=== PATIENT | female | born 1960 | race American Indian/Alaskan Native ===

== ENCOUNTER 2017-05-19 21:10 | Emergency (ER) | payer BC, OTHER ==
[~2017-05-19] VITALS: Ht 162.6 cm; Wt 65.8 kg
[~2017-05-19 21:10] MED LIST: CALCIUM 600 +1 EACH; DOCUSATE SODIU100 MG PO; NORCO 5-325 TA1 EACH PO; PROTONIX40 MG PO
[2017-05-19] MEDS ORDERED: PROTONIX40 MG PO (22:47)
--- NOTE | 2017-05-21 17:15 | EKG ---
[facility] [address] [facility] [place], [place] [address] Signed Normal sinus rhythm Low voltage QRS Borderline ECG No previous ECGs available Confirmed by JOANNE WHITE MD ([id number]) on 05/21/2017 5:15:04 PM Electronically Signed By: JOANNE WHITE MD 05/21/17 1715 PATIENT NAME: TEX ESPINOZA Electrocardiogram DATE OF : 60 PHYSICIAN: JOANNE WHITE MD REPORT #: [id number] REPORT IS CONFIDENTIAL AND NOT TO BE RELEASED WITHOUT AUTHORIZATION
[2017-08-20] MEDS ORDERED: NEXIUM40 MG PO (08:53)
[2017-08-20] MEDS ORDERED: FLOVENT DISKUS50 MCG INH (08:54)
[2017-08-20] MEDS ORDERED: ANTACID200 MG PO (08:54)
[2017-08-20] MEDS ORDERED: DOCUSATE CALCI240 MG PO (08:55)
== END 2017-05-19 23:14 | disposition home or self-care (01) ==
LOC: ED 21:10
DX: K29.70 Gastritis, unspecified, without bleeding (principal); F17.200 Nicotine dependence, unspecified, uncomplicated; Z90.710 Acquired absence of both cervix and uterus; Z90.49 Acquired absence of other specified parts of digestive tract; Z88.6 Allergy status to analgesic agent
CPT/HCPCS: 80053; 81001; 83690; 85025; 93005; 93010; 96374; 96375; 99284; J1170; J2405; J7030

== ENCOUNTER 2017-05-21 20:53 | Inpatient (IN) | payer BC, OTHER ==
[~2017-05-21] VITALS: Ht 162.6 cm; Wt 64.0 kg
[2017-05-22] MEDS ORDERED: VICODIN 5-3001 EACH PO (00:57)
--- NOTE | 2017-05-22 02:10 | NUR ---
IN TO START IV ABX, PT RESTING. STATES HER PAIN IS BETTER. PT NPO. NO FURTHER NEEDS AT THIS TIME. CALL LIGHT WITH IN REACH.
--- NOTE | 2017-05-22 03:30 | NUR ---
IN TO CHECK ON PT, PT APPEARS TO BE SLEEPING. NO APPARENT DISTRESS NOTED. RR EVEN AND UNLABORED. CALL LIGHT WITH IN REACH.
--- NOTE | 2017-05-22 05:52 | NUR ---
PT ARRIVED FROM ED AT 0046. AAO X 3, PLEASENT, CALLS APPROPRIATLY. PRN PAIN MEDICATION GIVEN X1 FOR ABDOMINAL PAIN. IV ABX ADMINISTERED. PT IS NPO. UP TO BATHROOM WITH STANDBY ASSIST. NO NAUSEA OR VOMITING DURING SHIFT.
--- NOTE | 2017-05-22 07:00 | NUR ---
BEDSIDE HANDOFF REPORT RECIEVED FROM HEEL GOUGER RN. PT RESTING IN BED. PT DENIES NEEDS AT THIS TIME.
--- NOTE | 2017-05-22 08:40 | NUR ---
PT RESTING IN BED. PT REQUESTING PAIN MEDICATION, 0.5 MG DILAUDID GIVEN. PT ASSISTED TO RESTROOM, VOIDING WITHOUT DIFFICULT. PT DENIES NAUSEA, NPO, MOUTH SWABS AT BEDSIDE. PT BOWEL TONES ACTIVE. LUNG SOUNDS CLEAR, ON ROOM AIR. IV FLUIDS INFUSING NS AT 125 ML/HR. PT DENIES OTHER NEEDS AT THIS TIME. AWAITING DR. BECK.
--- NOTE | 2017-05-22 12:10 | NUR ---
PT RESTING IN BED. MD TO BEDSIDE TO EVAULATE PT, DISCUSSED PLAN AND COURSE OF TREATMENT, PLAN TO CONTINUE WITH ABX, REMAIN NPO AND MONITOR FOR IMPROVING DIVERTICULITIS. PT BOWEL TONES HYPOACTIVE. PT ON ROOM AIR. PT VOIDING QS. PT DENIES OTHER NEEDS AT THIS TIME.
--- NOTE | 2017-05-22 14:30 | CONS ---
[facility] [address] [place], [place] [address] Signed DATE OF CONSULTATION: 05/22/17 REFERRING PHYSICIANS: Dr. Brianda [place]. CHIEF COMPLAINT: Left lower quadrant abdominal pain. HISTORY OF PRESENT ILLNESS Mariana is a 56-year-old female who had 3 days of abdominal pain. She thought maybe it was more epigastric. In the past, she was diagnosed with Helicobacter associated gastritis. Consequently, her primary care provider put her on Prilosec. It was making no difference and so she decided to come to the emergency room for evaluation. I n the emergency room, she is tender in the left lower quadrant with an elevated white blood cell count. CT scan confirmed diverticulitis in the descending colon. There is either a large diverticulum or little pocket of air in the mesentery next to the col on. 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 In the meantime, she has done fine. PAST MEDICAL HISTORY: Helicobacter associated gastritis. PAST SURGICAL HISTORY Laparoscopic cholecystectomy, hysterectomy and bladder suspension with mesh, right retinal detachment. SOCIAL HISTORY She does like to smoke. She does not drink. She is to Bill at [phone]. She goes to [facility] with Dr. John Horton. FAMILY HISTORY: None. REVIEW OF SYSTEMS She had 10 systems reviewed, and she has been doing great since I have seen her in my office previously. ALLERGIES: Ibuprofen. MEDICATION: Protonix. PHYSICAL EXAMINATION VITAL SIGNS: Blood pressure 99/49, heart rate 81, respiratory rate 20, temperature is 99. Her O2 sat is 95%. She is 5 feet 4 inches, 64 kg. GENERAL: Mariana is a 56-year-old female, appears healthy and her stated age. She is not systemically ill or toxic. She is lying supine in her hospital bed. LUNGS: Clear to auscultation bilaterally. HEART: Regular rate and rhythm. Electronically Signed By: LAYLA BECK MD 05/22/17 1430 PATIENT NAME: MARIANA HORTON CONSULTATION DATE OF : 60 PHYSICIAN: LAYLA BECK MD REPORT #: [id number] REPORT IS CONFIDENTIAL AND NOT TO BE RELEASED WITHOUT AUTHORIZATION [facility] [address] [place] [id number] Signed ABDOMEN: Soft and flat, but she is tender in the right mid quadrant to right lower quadrant of her abdomen. RECTUM: Rectal exam not performed currently. LABORATORY DATA White blood cell count 17.2, hemoglobin 12, neutrophils 81, platelets 170. BUN 9, creatinine 0.7, albumin 3.5, liver function tests are negative. RADIOGRAPHIC STUDIES CT scan of the abdomen and pelvis is reviewed as well as the report. You can see the area of diverticulitis in the mid descending colon and what may be a pocket of air in the mesentery or large diverticulum. ASSESSMENT AND PLAN Mariana is a 56-year-old female who presents with diverticulitis as above. It appears to be in the mid descending colon. She has been given IV fluids and antibiotics. I think we will change out the Rocephin for Cefepime and keep the Flagyl. We will keep her n.p.o. with some IV fluids and give her some pain control and see if this does not settle down he re in a few days. I reviewed all this with Mariana in detail. She understands diverticular disease. She understand she may or may not need surgery depending on her response to the antibiotics. She has expressed understanding and agrees to the above plan. MD HUSSEIN Walker/Yonis /[id number] cc: Dr. John Horton Electronically Signed By: LAYLA BECK MD 05/22/17 1430 PATIENT NAME: OLGAMARIANA VIDAL CONSULTATION DATE OF : 60 PHYSICIAN: LAYLA BECK MD REPORT #: [id number] REPORT IS CONFIDENTIAL AND NOT TO BE RELEASED WITHOUT AUTHORIZATION
[2017-05-22] MEDS ORDERED: MAALOX ADVANCE355 ML PO (15:26)
--- NOTE | 2017-05-22 15:27 | NUR ---
MED REC COMPLETE WITH [facility] MEDICATION REFILL RECORDS.
--- NOTE | 2017-05-22 18:19 | NUR ---
PT ALERT/ORIENTED. PT ON ROOM AIR. PT DENIES NAUSEA. ABD PAIN WELL CONTROLLED WITH 0.5 MG IV DILAUDID, PT CALLS APPROPRIATELY FOR PAIN MEDICATION. IV FLUIDS INFUSING D5LR AT 125 ML/HR. PT UP WITH SBA TO BATHROOM, HAS NOT HAD BM, VOIDING QS. PT NPO, HAS HARD CANDY AT BEDSIDE. PLAN IS TO CONTINUE IV ABX.
--- NOTE | 2017-05-22 18:39 | EKG ---
[facility] [address] [facility] [place] [address] Signed Normal sinus rhythm Right bundle branch block Abnormal ECG When compared with ECG of 19-MAY-2017 21:28, Right bundle branch block is now present Confirmed by JOANNE WHITE MD ([id number]) on 05/22/2017 6:38:49 PM Electronically Signed By: JOANNE WHITE MD 05/22/17 1839 PATIENT NAME: TEX ESPINOZA Electrocardiogram DATE OF : 60 PHYSICIAN: JOANNE WHITE MD REPORT #: [id number] REPORT IS CONFIDENTIAL AND NOT TO BE RELEASED WITHOUT AUTHORIZATION
--- NOTE | 2017-05-22 20:00 | NUR ---
RECEIVED REPORT AT 1900. FOUND PT IN BED WATCHING TV. PT DENIED PAIN AND N/V AT THAT TIME.
--- NOTE | 2017-05-22 22:00 | NUR ---
SBP WAS 95 AT 2100. MD BECK WAS CALLED AND NOTYFIED. NO INSTRUCTIONS WERE GIVEN SINCE PT HAS A LOWER SBP USUALLY AND SHE IS ASYMPTOMATIC. ALL OTHER V/S ARE WDL. ULQ, LLQ AND LRQ HAVE NORMAL ACITVE BOWEL SOUNDS. URQ HAS HYPOACTIVE BOWEL TONES. ALL LOBES ARE CLEAR. PT STILL DENIES N/V AND PAIN THAT WARRANTS ANY MEDICATION. NO NEW ISSUES NOTED AT THIS TIME.
--- NOTE | 2017-05-23 01:00 | NUR ---
PT IS SLEEPING AT THIS TIME.
--- NOTE | 2017-05-23 04:00 | NUR ---
PT IS SLEEPING. EARLIER PT STATED THAT HER PAIN IS MUCH BETTER.
--- NOTE | 2017-05-23 05:15 | NUR ---
PT OVERALL HAD AN UNEVENTFUL NIGHT. PAIN HAS BEEN WELL CONTROLLED WITH PRN PAIN MEDS AVAILABLE. PT DENIES N/V. SBP HAS BEEN >100. MD BECK WAS CALLED. PT IS ASYMPTOMATIC. OTHERWISE V/S ARE WDL. ALL BOWEL SOUNDS ARE HYPOACTIVE. PT IS PASSING GAS.
--- NOTE | 2017-05-23 06:31 | NUR ---
PT HAD A SBP INITIALLY OF 86. I ASSISTED PT TO BATHROOM. PT WAS NOT DIZZY OR IN ANY OTHER WAY SYMPTOMATIC IN REGARDS TO A LOW BP. AFTER RETURNING TO BED HER SPB WAS 89. I WILL PASS THIS INFOR ON TO DAY SHIFT IF MD BECK IS NOT HERE BEFORE 0700.
--- NOTE | 2017-05-23 07:15 | NUR ---
HANDOFF REPORT RECEIVED FROM MIND READER RN.
--- NOTE | 2017-05-23 08:00 | NUR ---
PT RESTING IN BED. PT STATES PAIN TOLERABLE AT THIS TIME, DENIES NEED FOR PAIN MEDICATION. PT ON ROOM AIR, LUNG SOUNDS CLEAR. PT DENIES NAUSEA, COMPLAINT OF ABD CRAMPING, BOWEL TONES HYPOACTIVE. IV ABX INFUSING. PT WIHTOUT EDEMA. PT DENIES NEEDS AT THIS TIME. DISCUSSED SHOWER LATER.
--- NOTE | 2017-05-23 11:03 | NUR ---
PT IS SITTING UP IN BED WITH CALL LIGHT IN REACH. PT ASKED FOR A WARM BLANKETS AND HARD CANDY
--- NOTE | 2017-05-23 13:50 | NUR ---
PT RESTING IN BED. FAMILY AT BEDSIDE. IV ABX INFUSING. PT DENIES NAUSEA. PT REQUESTING CHICKEN BROTH, PROVIDED 150 ML AND INSTRUCTED TO SIP SLOWLY. PT WALKING IN [place] WITH FAMILY. PT DENIES OTHER NEEDS AT THIS TIME.
--- NOTE | 2017-05-23 14:13 | NUR ---
PT AMBULATED IN THE HALLWAY, AND IS NOW SITTING UP ON THE SIDE OF THE BED WITH CALL LIGHT IN REACH. PT ASKED FOR A ROBE
--- NOTE | 2017-05-23 17:56 | NUR ---
PT USED BATHROOM AND RETURNED TO BED. PT DID NOT NEED ANYTHING ELSE
--- NOTE | 2017-05-23 18:33 | NUR ---
PT WELL CONTROLLED, REQUIRED 1 DOSE OF DILAUDID THIS AFTERNOON. RECEIVING IV ABX TO LEFT FA. PT AMBULATED IN [place]. ATTEMPTED TO DRINK BROTH, DID NOT TOLERATE, WATER AT BEDSIDE, <350ML/8HR. BOWEL TONES HYPOACTIVE, PASSED FLATUS. VOIDING QS.
--- NOTE | 2017-05-23 20:05 | NUR ---
SHIFT REPORT RECIEVED. PATIENT RESTING IN BED. REPORTS A HEADACHE AT 6/10. REQUEST PRN SUPPOSITORY PAIN MEDS. PRN PAIN MED WAS GIVEN. PATIENT HAS NO FURTHER REQUEST AT THIS TIME. CALL LIGHT WITHIN REACH.
--- NOTE | 2017-05-23 20:46 | NUR ---
EVENING MEDICATIONS GIVEN PER ORDER. PATIENT REPORTS HEADACHE HAS IMPROVED TO A 3/10. PATIENT BOWEL SOUNDS ARE HYPOACTIVE. ABDOMEN SOFT AND TENDER THROUGHOUT, MORE SO ON THE RUQ. PATIENT DENIES NAUSEA AT THIS TIME. HAS BEEN SIPPING WATER AND REPORTS THAT SHE IS TOLERATING IT WELL. PATIENT AGREES TO TAKE A SMALL WALK IN THE [facility]. PATIENT HAS SCD'S ON BOTH LEGS. LUNGS ARE CLEAR THROUGHOUT. PATIENT HAS NO FURTHER REQUEST AT THIS TIME. RN WILL RETURN TO ASSIST PATIENT WITH AMBULATION WHEN PATIENT IS READY. CALL LIGHT WITHIN REACH. ASSESSMENT COMPLETED AND DOCUMENTED.
--- NOTE | 2017-05-23 21:30 | NUR ---
PATIENT UP TO WALK IN THE HALLWAY. PATIENT WAS STEADY ON HER FEET WITH A STAND BY ASSIST. PATIENT TOLERATED AMBULATION WELL. STATED THAT IT "FELT GOOD TO GET UP AND MOVE". PATIENT WAS ASSISTED BACK INTO BED. NO FURTHER REQUEST AT THIS TIME. CALL LIGHT WITHIN REACH.
--- NOTE | 2017-05-24 00:35 | NUR ---
PATIENT UP TO BATHROOM. PATIENT REQUESTED TO TRY SOME JELLO. SHE HAD TRIED BROTH EARLIER TODAY AND IT DID NOT SETTLE WELL WITH HER. SHE HAS BEEN TOLERATING WATER WELL. PATIENT GIVEN JELLO AND RN WILL REASSESS. PATIENT DENIES NAUSEA. STATES THAT HER ABDOMINAL PAIN HAS BEEN "ACTING UP, COMING AND GOING". PATIENT REQUEST PRN PAIN MEDICATIONS WHICH WAS GIVEN TO HER. SHE DESCRIBED HER PAIN "A TIGHTNESS, KIND OF LIKE A CRAMP". RATED AT 5/10.
--- NOTE | 2017-05-24 00:59 | NUR ---
PATIENT REPORTED HER LEFT HAND FEELS SLIGHTLY SWOLLEN. IV IS IN RIGHT AC. IV IS WNL. NO REDNESS OR SWELLING AROUND THE SIGHT ARE NOTICED. RIGHT ARM WAS ELEVATED ON A PILLOW. IVF ARE RUNNING CONTINUOUSLY AT 125ML/HR. PATIENT INSTRUCTED TO ALERT RN IF THE IV BECOMES PAINFUL, THE SWELLING INCREASES, OR SHE NOTICES ANY OTHER CHANGES. PATIENT GIVEN PRN PAIN MEDICATION FOR ABDOMINAL PAIN, REPORTS THE PAIN IS NOW UNDERCONTROL AT A 2/10. NO FURTHER REQUEST AT THIS TIME. CALL LIGHT WITHIN REACH.
--- NOTE | 2017-05-24 01:41 | NUR ---
PATIENT HAD 100ML OF GREEN EMESIS. PATIENT REQUEST PRN NAUSEA MEDS WHICH WERE GIVEN. ORAL CARE PROVIDED AND PATIENT REPORTED THAT THE NAUSEA HAD LESSENED AFTER SHE HAD ONE EPISODE OF EMESIS. WILL REASSESS. CALL LIGHT IN REACH. NO FURTHER REQUEST AT THIS TIME.
--- NOTE | 2017-05-24 02:41 | NUR ---
PATIENT RESTING IN BED. EYES CLOSED. RR 14. CALL LIGHT IN REACH.
--- NOTE | 2017-05-24 05:28 | NUR ---
PATIENT UP TO BATHROOM SBA. DENIES PAIN OR NAUSEA AT THIS TIME. NO FURTHER REQUEST AT THIS TIME. CALL LIGHT WITHIN REACH.
--- NOTE | 2017-05-24 05:47 | NUR ---
PATIENT RESTED THROUGHOUT THE NIGHT. PRN MEDS X2 FOR CAPPS AND ABD PAIN. BOWEL SOUNDS ARE HYPOACTIVE. ABD SOFT&TENDER. 350ML/8HR CLEAR LIQUID DIET. TOLERATES WATER WELL, NAUSEOUS W/BROTH &JELLLO. EMESIS X1, PRN MEDS GIVEN. PATIENT DENIES PAIN OR NAUSEA THIS MORNING. [facility]. IV IN RAC. SCDS. D5LR @125ML/HR.
--- NOTE | 2017-05-24 06:40 | NUR ---
PATIENT RESTING IN BED. EYES CLOSED. RR 16. CALL IN REACH.
--- NOTE | 2017-05-24 07:00 | NUR ---
BEDSIDE HANDOFF REPORT RECEIVED FROM ACCOUNTS PAYABLES CLERK RN. PT SLEEEPING, LEFT UNDISTURBED.
--- NOTE | 2017-05-24 08:30 | NUR ---
PT RESTING IN BED. PT DENIES NAUSEA AT THIS TIME, RATING PAIN 4/10, DENIES NEED FOR PAIN MEDICATION AT THIS TIME. PT ON ROOM AIR, LUNG SOUNDS CLEAR. BOWEL TONES HYPOACTIVE. SWELLING IN LEFT LOWER ARM IMPROVED, ARM ELEVATED ON PILLOW, IV TO L AC PATENT, NO S/S OF LEAKING OR INFILTRATION. IV ABX INFUSING. PT WITHOUT EDEMA TO BLE, SCDS IN PLACE. PT DENIES NEEDS AT THIS TIME, DISCUSSEC PLAN OF CARE.
--- NOTE | 2017-05-24 12:13 | NUR ---
PT REQUESTIGN SOUP, TOLERATING JELLO, EATING SLOWLY. PT UP TO BATHROOM, PASSING FLATUS. PT DENIES NAUSEA OR PAIN AT THIS TIME.
--- NOTE | 2017-05-24 12:36 | NUR ---
PATIENT DOING WELL. HAS VISITOR IN ROOM
--- NOTE | 2017-05-24 14:51 | NUR ---
PT REQUESTING TYLENOL SUPPOSITORY FOR HEADACHE, GIVEN. PT PROVIDED WITH 100 ML OF COFFEE FOR HEADACHE. PT RESTING IN BED. DENIES OTHER NEEDS AT THIS TIME.
--- NOTE | 2017-05-24 18:21 | NUR ---
PT ON ROOM AIR, LUNG SOUNDS CLEAR. PT WITH HEADACHE, GIVEN TYLENOL SUPP. PT ATTEMPTED FULL LIQUID DIET, TOLERATED CREAM OF CHICKEN SOUP, GOING SLOWLY DIRECTED. PT UP SBA TO BATHROOM, VOIDING QS. BOWLE TONES CONTINUE TO BE HYPOACTIVE, PASSING FLATUS, NO BM.
--- NOTE | 2017-05-24 19:25 | NUR ---
BEDSIDE REPORT RECEIVED FROM OFFGOING RN. PT SITTING UP IN CHAIR AFTER FINISHING SHOWER. PT DENIES NEEDS AT THIS TIME. CALL LIGHT WITHIN REACH.
--- NOTE | 2017-05-24 20:20 | NUR ---
PT ASSESSMENT COMPLETED. PT SITTING UP IN CHAIR. STATES THAT PAIN IS 3-4/10, IN HER HEAD AND ABDOMEN. REPORTS THAT SHE TRIED TO FINISH HER SOUP AND BEGAN EXPERIENCING SHARP PAINS TO HER ABD. PT IS HESITANT TO TAKE PAIN MEDICATION. 250 ML [place] SODA PROVIDED, PT ABLE TO BURP STATES THAT PAIN SOME SHARP PAIN TO ABD IS RELIEVED. BT'S ACTIVE, ABD TENDER TO PALPATION. PT DENIES OTHER NEEDS AT THIS TIME. CALL LIGHT WITHIN REACH.
--- NOTE | 2017-05-24 21:10 | NUR ---
PT RESPORTS THAT SHE WAS UP IN THE [place] WALKING WITH HER . WAS ABLE TO PASS A LARGE AMOUNT OF FLATUS, REPORTS RELIEF FROM SHARP ABD PAINS. PT REQUESTING TYLENOL SUPPOSITORY FOR DULL HEADACHE 3-4/10, WELL ACHING IN HER L ARM DUE TO OLD IV SITE. SUPPOSITORY ADIMINISTERED. PT TOLERATED WELL. PT DENIES OTHER NEEDS, PTS AT BEDSIDE. CALL LIGHT WITHIN REACH.
--- NOTE | 2017-05-24 23:25 | NUR ---
PT UTILIZES CALL LIGHT. REPORTS THAT HE PAIN IS UNIMPROVED TO HER HEAD AND L ARM. CONTINUES TO RATE 4/10. 0.3MG OF PRN DILAUDID ADMINISTERED. PT DENIES OTHER NEEDS. CALL LIGHT WITHIN REACH.
--- NOTE | 2017-05-25 00:26 | NUR ---
PT LYING IN BED WATCHING TV. STATES THAT PAIN IS DECREASED TO 1/10, DENIES NAUSEA. DENIES OTHER NEEDS AT THIS TIME. CALL LIGHT WITHIN REACH.
--- NOTE | 2017-05-25 02:27 | NUR ---
PT UP TO USE THE BATHROOM. STATES THAT PAIN IS "LOWER". DENIES NEED FOR PAIN MEDCIATION. PT ASSESSMENT COMPLETED. BT'S ACTIVE. PT REPORTS TENDERNESS TO ABD UPON PALPATION. PT DENIES PASSING FLATUS SINCE WALKING EARLIER. PT DENIES OTHER NEEDS AT THIS TIME. CALL LIGHT WITHIN REACH.
--- NOTE | 2017-05-25 04:10 | NUR ---
PT UTILIZES CALL LIGHT, REPORTS 5/10 PAIN D/T HEADACHE. PRN DILAUDID, 0.5MG ADMINISTERED. PT STATES IMMEDIATE RELIEF. DENIES OTHER NEEDS AT THIS TIME. CALL LIGHT WITHIN REACH.
--- NOTE | 2017-05-25 05:15 | NUR ---
PT RESTING OFF AND ON THROUGHOUT THE SHIFT. TYLENOL SUPPOSITORY X 1, DILAUDID X 2 FOR HEADACHE. PT UP TO WALK IN [place] X 1. ABD TENDER TO PALPATION, BT'S ACTIVE. PT PASSING FLATUS, NO BM SINCE 05/19. PT TOLERATING FULL LIQUID DIET WELL. SBA. D5LR@ 100.
--- NOTE | 2017-05-25 06:36 | NUR ---
PT RESTING IN BED WITH EYES CLOSED. RESPIRATIONS EVEN AND UNLABORED. PT WAKES EASILY. STATES THAT SHE IS DOING "OK", DENIES NEEDS AT THIS TIME. CALL LIGHT WITHIN REACH. PT WOULD LIKE TO CONTINUES TO SLEEP RATHER THAN BE AWOKEN FOR BEDSIDE REPORT.
--- NOTE | 2017-05-25 07:31 | NUR ---
BEDSIDE REPORT RECEIVED FROM MINDI PATEL. PT ASKED TO NOT HAVE REPORT IN ROOM. PT REQUEST GRANTED.
--- NOTE | 2017-05-25 07:45 | NUR ---
PATIENT RESTING IN BED WITH EYES CLOSED.
--- NOTE | 2017-05-25 10:00 | NUR ---
PATIENT UP TO SHOWER. LINENS CHANGED. FRESH ICE WATER GIVEN. PATIENT SITTING UP IN CHAIR. WARM BLANKET GIVEN. NO OTHER NEEDS AT THIS TIME. CALL BUTTON IN REACH.
--- NOTE | 2017-05-25 12:00 | NUR ---
PATIENT SITTING UP IN THE CHAIR RESTING WITH HER EYES CLOSED.
--- NOTE | 2017-05-25 16:26 | NUR ---
pt allowed low fiber diet. given education before lunch on options of food. tolerating well so far. going slow.
--- NOTE | 2017-05-25 18:08 | NUR ---
pt had decent day. No BM. + BT and + flatus. ambulated halls with family. flagyl/cefepime IV. D5LR @ 100 RFA. No pain meds or nausea meds today. Advanced to low fiber diet/soft. gave education packet. pt following well. independent to ambulate. may d/c tomorrow.
--- NOTE | 2017-05-25 19:20 | NUR ---
RECEIVED REPORT FROM AMANDA HEBERT. PATIENT HAS NO NEEDS AT THIS TIME.
--- NOTE | 2017-05-25 20:43 | NUR ---
EVENING MEDICATION WAS GIVEN AND ASSESSMENT DONE. COMPLAINING OF 3/10 PAIN IN BACK. REQUESTING TYLENOL. NO OTHER NEEDS AT THIS TIME.
--- NOTE | 2017-05-25 22:56 | NUR ---
PATIENT IS ASLEEP.
--- NOTE | 2017-05-26 02:07 | NUR ---
MEDICATION ADMINISTERED AND ASSESSMENT DONE. PATIENT HAS NO NEEDS AT THIS TIME.
--- NOTE | 2017-05-26 05:29 | NUR ---
PATIENT HAS BEEN RESTING THROUGHOUT THE NIGHT. PAIN MEDICATION ADMINISTERED X1 FOR LOWER BACK DISCOMFORT. PATIENT STATES THAT SHE NORMALLY HAS LOWER BACK PAIN WHEN SHE NEEDS TO HAVE A BM. NO COMPLAINTS OF NAUSEA. THERE WERE NO ACUTE CHANGES FROM BEGINNING OF SHIFT ASSESSMENT. INTENTIONAL ROUNDING DONE WITH ALL PATIENT'S NEEDS MET.
--- NOTE | 2017-05-26 05:50 | NUR ---
PATIENT REQUESTING MORE WATER. NO OTHER NEEDS AT THIS TIME.
--- NOTE | 2017-05-26 07:35 | NUR ---
PATIENT ALLOWED TO SLEEP DURING BEDSIDE REPORT. PATIENT ORDERS UPDATED IN COMPUTER. PT HAS MIRALAX SCHEDULED BID. NO PAIN/NAUSEA MEDS GIVEN OVERNIGHT. WILL ENCOURAGE ADVANCEMENT OF DIET THROUGHOUT DAY. WILL PLAN TO HAVE PATIENT AMBULATE HALLS TID AND ASSIST WITH PASSING STOOL ABLE.
[2017-05-26] MEDS ORDERED: CIPRO500 MG PO (11:14)
[2017-05-26] MEDS ORDERED: MIRALAX17 GM PO (11:15)
[2017-05-26] MEDS ORDERED: FLAGYL500 MG PO (11:15)
--- NOTE | 2017-05-27 11:24 | DS ---
[facility] [address] [place], [place] [address] Signed DATE OF DISCHARGE: 06/05/17 FINAL DIAGNOSIS: Descending colon diverticulitis. PROCEDURES: CT scan of abdomen and pelvis. HISTORY OF PRESENT ILLNESS Mariana is a 56-year-old female who over three days had what she felt was epigastric abdominal pain. Her PCP gave her some Prilosec and it was not improving. She therefore went to the emergency room for evaluation. She was tender actually in the right mid quadrant and a little bit in the right lower quadrant. Her white blood cell count was elevated. CT scan of abdomen and pelvis was performed, and she had an air diverticulitis involving her descending colon. They looked to be either diverticular or maybe an air pocket in the mesentery as well. 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 HOSPITAL COURSE Mariana originally received Rocephin and Flagyl. We then converted her to Cefepime and Flagyl and by the next day her white count was down to normal. Her pain was already decreasing. Each day, her pain improved. Her white blood cell count remained normal. We increased her diet, and she is passing lots of flatus. She is yet to pass a bowel movement although we did give her a little MiraLAX. She told me she has a long history of constipation and so she is not surprised that she has not had a bowel movement. However, she did tell me she ate quite a bit of popcorn before she came to the hospital. She thinks maybe that is what triggered this whole episode. At this point, she is markedly improved, and we are going to be discharging her to home. DISCHARGE PLANS AND MEDICATIONS She will be written for Cipro 500 mg p.o. twice a day for six days along with Flagyl 500 mg p.o. three times a day for six days with no refills. I wrote down MiraLAX 17 g p.o. twice daily in 8-12 ounces of liquid p.r.n. for constipation. Once the diverticulitis clears, she can add Benefiber to her regimen. She is welcome to resume her chronic medications. Really no need for any pain medications at this point. They just result in constipation. We have asked her to follow a low residue diet at home. She wants to return to work on , 05/28/2017, which is fine. We will have her back in the office in a week or so for follow-up. She has expressed understanding and agrees to above plan. Electronically Signed By: LAYLA BECK MD 05/27/17 1124 PATIENT NAME: MARIANA ESPINOZA DISCHARGE SUMMARY DATE OF : 60 PHYSICIAN: LAYLA BECK MD REPORT #: [id number] REPORT IS CONFIDENTIAL AND NOT TO BE RELEASED WITHOUT AUTHORIZATION [facility] [address] [place], [place] [address] Signed MD HUSSEIN Walker/Modl /[id number] cc: Anushka Echeverria Electronically Signed By: LAYLA BECK MD 05/27/17 1124 PATIENT NAME: OLGAMARIANA DISCHARGE SUMMARY DATE OF : 60 PHYSICIAN: LAYLA BECK MD REPORT #: [id number] REPORT IS CONFIDENTIAL AND NOT TO BE RELEASED WITHOUT AUTHORIZATION
[2017-08-20] MEDS ORDERED: NEXIUM40 MG PO (08:53)
[2017-08-20] MEDS ORDERED: ANTACID200 MG PO (08:54)
[2017-08-20] MEDS ORDERED: FLOVENT DISKUS50 MCG INH (08:54)
[2017-08-20] MEDS ORDERED: DOCUSATE CALCI240 MG PO (08:55)
== END 2017-05-26 14:40 | disposition home or self-care (01) | DRG 392 ==
LOC: ED 20:53 → MS 05-22 00:10
PROVIDERS: ADMIT Colon & Rectal Surgery
DX: K57.92 Diverticulitis of intestine, part unspecified, without perforation or abscess without bleeding (principal); K29.70 Gastritis, unspecified, without bleeding; F17.210 Nicotine dependence, cigarettes, uncomplicated
CPT/HCPCS: 36415; 74177; 80048; 80053; 83690; 83735; 84100; 85025; 93005; 93010; 96361; 96365; 96375; 99285; 99406; J0692; J0696; J1170; J1644; J2405; J2550; J7030; J7120; Q9967

== ENCOUNTER 2017-08-05 16:21 | Emergency (ER) | payer BC, OTHER ==
[~2017-08-05] VITALS: Ht 162.6 cm; Wt 61.7 kg
[~2017-08-05 16:21] MED LIST changes: +CIPRO500 MG PO; +FLAGYL500 MG PO; +MAALOX ADVANCE355 ML PO; +MIRALAX17 GM PO; +VICODIN 5-3001 EACH PO
[2017-08-05] MEDS ORDERED: OMEPRAZOLE20 MG PO (16:40)
[2017-08-05] MEDS ORDERED: CLARITHROMYCIN500 MG PO (16:41)
[2017-08-05] MEDS ORDERED: ULTRAM50 MG PO (18:58)
[2017-08-05] MEDS ORDERED: CIPRO250 MG PO (18:58)
[2017-08-20] MEDS ORDERED: NEXIUM40 MG PO (08:53)
[2017-08-20] MEDS ORDERED: ANTACID200 MG PO (08:54)
[2017-08-20] MEDS ORDERED: FLOVENT DISKUS50 MCG INH (08:54)
[2017-08-20] MEDS ORDERED: DOCUSATE CALCI240 MG PO (08:55)
== END 2017-08-05 19:15 | disposition home or self-care (01) ==
LOC: ED 16:21
DX: N39.0 Urinary tract infection, site not specified (principal); F17.200 Nicotine dependence, unspecified, uncomplicated; Z79.899 Other long term (current) drug therapy
CPT/HCPCS: 74177; 80053; 81001; 82150; 83690; 85025; 96361; 96374; 96375; 99284; J1170; J2405; J7030; Q9967

== ENCOUNTER 2021-01-21 14:07 | Emergency (ER) | payer BC, OTHER ==
[~2021-01-21] VITALS: Ht 162.6 cm; Wt 63.5 kg
[~2021-01-21 14:07] MED LIST changes: +ANTACID200 MG PO; +CIPRO250 MG PO; +CLARITHROMYCIN500 MG PO; +DOCUSATE CALCI240 MG PO; +FLOVENT DISKUS50 MCG INH; +NEXIUM40 MG PO; +OMEPRAZOLE20 MG PO; +ULTRAM50 MG PO
--- NOTE | 2021-01-21 16:08 | EKG ---
[facility] [address] [facility] [place] [address] Signed Normal sinus rhythm Rightward axis T wave abnormality, consider anterior ischemia Abnormal ECG When compared with ECG of 22-MAY-2017 13:24, Right bundle branch block is no longer present Confirmed by JACKIE GONZALES MD ([id number]) on 01/21/2021 4:08:31 PM Electronically Signed By: JACKIE GONZALES MD 01/21/21 1608 PATIENT NAME: TEX ESPINOZA Electrocardiogram DATE OF : 60 PHYSICIAN: JACKIE GONZALES MD REPORT #: [id number] REPORT IS CONFIDENTIAL AND NOT TO BE RELEASED WITHOUT AUTHORIZATION
[2021-01-21] MEDS ORDERED: ZOFRAN4 MG PO (18:02)
[2021-01-21] MEDS ORDERED: DICYCLOMINE HCL20 MG PO (18:02)
== END 2021-01-21 18:31 | disposition home or self-care (01) ==
LOC: ED 14:07
DX: K52.9 Noninfective gastroenteritis and colitis, unspecified (principal); E86.0 Dehydration; Z88.8 Allergy status to other drugs, medicaments and biological substances; F17.200 Nicotine dependence, unspecified, uncomplicated
CPT/HCPCS: 80053; 81001; 83690; 83735; 84484; 85025; 87338; 93005; 93010; 96374; 96375; 99284-25; 99406; J1885; J2405; J7030; U0003

== ENCOUNTER 2021-12-02 16:42 | Emergency (ER) | payer BC, OTHER ==
[~2021-12-02] VITALS: Ht 162.6 cm; Wt 63.5 kg
[~2021-12-02 16:42] MED LIST changes: +DICYCLOMINE HCL20 MG PO; +ZOFRAN4 MG PO
[2021-12-02] MEDS ORDERED: FLUTICASONE PRO16 GM NAS (16:55)
[2021-12-02] MEDS ORDERED: ALLERGY MEDICAT25 M1 PO (16:56)
[2021-12-02] MEDS ORDERED: METHYLPREDNISOLO4 M1 PO (18:50)
[2021-12-02] MEDS ORDERED: ALL DAY ALLERGY10 M3 PO (18:54)
[2021-12-02] MEDS ORDERED: D3 DOTS50 MCG PO (18:55)
== END 2021-12-02 19:11 | disposition home or self-care (01) ==
LOC: ED 16:42
DX: M54.12 Radiculopathy, cervical region (principal); F17.200 Nicotine dependence, unspecified, uncomplicated; Z88.6 Allergy status to analgesic agent; Z79.899 Other long term (current) drug therapy
CPT/HCPCS: 70450; 72125; 99284-25; J7512